=== PATIENT | male | born 1990 | race Caucasian/White ===

== ENCOUNTER 2022-01-07 11:26 | Emergency (ER) | payer MEDICAID ==
[~2022-01-07] VITALS: Ht 180.3 cm; Wt 108.9 kg
--- NOTE | 2022-01-07 11:29 | NUR ---
BIBA TO BED 3.
[2022-01-07 11:30] VITALS: BP 144/106
--- NOTE | 2022-01-07 11:36 | NUR ---
31YO MALE PT BIBA FROM STREETS DUE TO ALOC. PER [facility], PT WAS FOUND "LAYING ON FLOOR FLAT ON BACK " AT [facility] AND CALLED BY BYSTANDERS. UPON ARRIVAL PT TACHY AND AAOX3 TO NAME, PLACE AND TIME W/ SOME CONFUSION. UNABLE TO RECALL LAST ACTIVITY . STATES USE OF METH TODAY AND HE "FEELS DEVOURED" . REPORTS LAST TIME USING WAS 2 YEARS AGO. MUMBLED EXCESSIVE SPEECH. DENIES N/V/D, CHEST PAIN , SOB , FEVERS OR CHILLS. PT ON TRANSMISSION ASSEMBLER,RESPIRATIONS EVEN AND UNLABORED. BED AT LOWEST POSITION , BED RAIL UP X2. HX:AIDS, DIABETES ALLERGIES: UNOBTAINABLE
--- NOTE | 2022-01-07 12:05 | NUR ---
MD PARNELL AT BEDSIDE FOR EVALUATION
[2022-01-07 12:18] VITALS: BP 139/91
--- NOTE | 2022-01-07 12:18 | NUR ---
PT [facility]CS 15. BEING DC PER MD ORDER.
--- NOTE | 2022-01-07 12:18 | NUR ---
Patient discharged with v/s stable. Written and verbal after care instructions given and explained. Patient verbalized understanding. Ambulatory with steady gait. All questions addressed prior to discharge. Advised to follow up with PMD.
--- NOTE | 2022-01-07 12:18 | NUR ---
The patient's care was reviewed and supervised by ED Agency Nurse 9, RN, RN.
== END 2022-01-07 12:18 | disposition home or self-care (01) ==
LOC: MED 11:26
DX: F15.10 Other stimulant abuse, uncomplicated (principal)
CPT/HCPCS: 99281